=== PATIENT | male | born 1955 | race Caucasian/White ===

== ENCOUNTER 2023-12-25 13:12 | Emergency (ER) | payer MEDICARE, OTHER ==
[~2023-12-25] VITALS: Ht 167.6 cm; Wt 81.6 kg
[2023-12-25 15:00] VITALS: BP 124/61; TEMP 98; O2SAT 96
[2023-12-25] MEDS ORDERED: SULF1TAB48 PO (16:11)
[2023-12-25] MEDS ORDERED: CEPH500C2 PO (16:11)
== END 2023-12-25 16:35 | disposition left against medical advice (07) ==
LOC: ER 13:37
DX: L03.011 Cellulitis of right finger (principal)